=== PATIENT | female | born 1935 | race Caucasian/White ===

== ENCOUNTER 2017-04-24 08:30 | Outpatient (CLI) | payer OTHER ==
--- NOTE | 2017-04-24 11:56 | DIAGNOSTIC IMAGING REPORT ---
PROCEDURE: US ART LOWER EXT WITH MARGARET-B/L INDICATION: RT LEG ULCER,VENOUS STASIS TECHNIQUE: Preexercise ABIs were performed. The patient did not exercise. Color Doppler duplex imaging of the lower extremities. COMPARISON: None. FINDINGS: Technically difficult examination secondary to patient's body habitus and limited range of motion. Cardiac arrhythmia. RIGHT LOWER EXTREMITY: ABIs: Resting ABIs: Posterior tibialis 1.2 foreign dorsalis pedis 1.23. VESSELS: Minimal plaque formation. Triphasic wave form throughout the right lower extremity except for biphasic wave form of the profunda femoris and distal posterior tibial artery. RIGHT LOWER EXTREMITY PEAK SYSTOLIC VELOCITIES: External iliac: 129 cm/second. Common femoral artery: 96 cm/second. Profunda femoral artery: 55 cm/second. Proximal superficial femoral artery: 89 cm/second. Mid superficial femoral artery: 75 cm/second. Distal superficial femoral artery: 61 cm/second. Popliteal artery: 53 cm/second. Proximal posterior tibial artery: 47 cm/second. Proximal anterior tibial artery: 65 cm/second. Distal posterior tibial artery: 62 cm/second. Dorsalis pedis artery: 86 cm/second. LEFT LOWER EXTREMITY: ABIs: Resting ABIs: Posterior tibial 1.21 and dorsalis pedis 1.19. VESSELS: Minimal plaque formation. Normal triphasic wave form throughout the left lower extremity except for biphasic wave form of the distal SFA and distal posterior tibial artery. Proximal posterior tibial artery is not well visualized. LEFT LOWER EXTREMITY PEAK SYSTOLIC VELOCITIES: External iliac: 83 cm/second. Common femoral artery: 95 cm/second. Profunda femoral artery: 47 cm/second. Proximal superficial femoral artery: 113 cm/second. Mid superficial femoral artery: 87 cm/second. Distal superficial femoral artery: 71 cm/second. Popliteal artery: 67 cm/second. Proximal posterior tibial artery: Not well visualized Proximal anterior tibial artery: 59 cm/second. . Distal posterior tibial artery: 68 cm/second. Dorsalis pedis artery: 89 cm/second. IMPRESSION: 1. Cardiac arrhythmia 2. Minimal plaque formation bilaterally without evidence of resting arterial insufficiency 3. Proximal left posterior tibial artery not well visualized.
--- NOTE | 2017-04-24 12:03 | DIAGNOSTIC IMAGING REPORT ---
PROCEDURE: US VENOUS - BILATERAL EXT INDICATION: RT LEG ULCER,VENOUS STASIS TECHNIQUE: Duplex sonography of the deep and superficial venous system in both lower extremities was performed. Compression and augmentation techniques were used. The patient was scanned in the upright position. Surveillance of the venous system during Valsalva maneuver when appropriate was performed. COMPARISON: None. FINDINGS: Each interrogated segment of the deep vein demonstrates normal compressibility, augmentation, and normal color Doppler flow without filling defect. No thrombus in either greater saphenous or short saphenous vein. There is no venous reflux in the right common femoral, superficial femoral and greater saphenous veins. Greater saphenous vein measures 5 mm proximally, 4 mm mid and 3 mm distally. There is no venous reflux in the left common femoral, superficial femoral and greater saphenous veins. Left greater saphenous vein measures 5 mm proximally, 3 mm mid and 3 mm distally. IMPRESSION: 1. No evidence of a DVT in both lower extremities 2. No evidence of venous reflux bilaterally in the deep and superficial venous systems.
== END 2017-04-24 23:00 ==
LOC: US SRH 08:30
DX: L97.919 Non-pressure chronic ulcer of unspecified part of right lower leg with unspecified severity (principal); L97.929 Non-pressure chronic ulcer of unspecified part of left lower leg with unspecified severity